=== PATIENT | female | born 1990 | race Two or more races ===

== ENCOUNTER 2020-05-20 12:26 | Emergency (ER) | payer BC ==
[2020-05-20] MEDS ORDERED: predniSONE 20 MG Tab PO ONE (13:13)
[2020-05-20] MEDS ORDERED: Famotidine 20 MG Tab PO ONE (13:14)
--- NOTE | 2020-05-20 13:21 | EDM.PDOC ---
ED HPI GENERAL MEDICAL PROBLEM - General Chief Complaint: Respiratory Problem Stated Complaint: SOB/CHEST TIGHTNESS Time Seen by Provider: 05/20/20 13:13 Source of Information: Reports: Patient History Limitations: Reports: No Limitations - History of Present Illness INITIAL COMMENTS - FREE TEXT/NARRATIVE: 29-year-old female presents to the ED with signs and symptoms of allergic reaction primarily involving her throat with itching in the throat and throat closure and also some difficulties breathing. Symptoms are now somewhat better than they were at onset of illness. Patient was started on Azo yesterday with Bactrim double strength for urinary tract infection. She did notice some mild itching in her throat yesterday and today she did not take any Bactrim as she was concerned she may be allergic to the sulfa component. She therefore only took the Azo tablet this morning within 20 minutes to half hour she started to develop itching of the throat and feeling of her throat was closing as well as difficulty breathing. Take Benadryl 50 mg by mouth at home. She felt that symptoms were getting better over a period of 2 to hours or so afterwards but then started to feel like it was starting to reoccur which brought her to the ED. At present she still states it feels much better than it did at onset this morning. He never developed any hives. She never developed any generalized erythema. No itching in the ears or excessive tearing from her eyes or swelling of the eyelids. Onset: Today, Sudden Onset Date: 05/20/20 Onset Time: 09:00 (Tempt him started 20 to 30 minutes after taking Azo tablet this morning) Duration: Hour(s): Location: Reports: Neck (Mostly symptoms of throat closure and itching and some difficulty breathing) Quality: Reports: Other Severity: Moderate (Throat itching and feeling of throat closure.) Improves with: Reports: Other (In terms have for the most part resolved after taking Benadryl 50 mg by mouth this morning.) Worsens with: Reports: None Context: Reports: Other (Suspect allergy to drug Azo. This would be to the dye in this compound). Denies: Activity, Exercise, Lifting, Sick Contact, Trauma Associated Symptoms: Reports: Shortness of Breath. Denies: Confusion, Chest Pain, Cough, cough w sputum, Diaphoresis, Fever/Chills, Headaches, Loss of Appetite, Malaise, Nausea/Vomiting, Rash, Seizure, Syncope, Weakness Treatments SOAP INSPECTOR: Reports: Other (see below) (Adderall 50 mg by mouth) - Related Data Allergies Allergy/AdvReac Type Severity Reaction Status Date / Time phenazopyridine [From Azo] Allergy Severe Airway Verified 05/20/20 13:13 Tightness Home Meds: Home Meds Sulfamethoxazole/Trimethoprim [Sulfamethoxazole-Tmp Ds Tablet] 1 tab PO BID 05/20/20 [History] predniSONE [Prednisone] 20 mg PO BID #6 tablet 05/20/20 [Rx] Past Medical History HEENT History: Reports: None Cardiovascular History: Reports: None Respiratory History: Reports: None Gastrointestinal History: Reports: None Genitourinary History: Reports: UTI, Recurrent HOME AIDE History: Reports: Spontaneous LMP (Approximate): Other (See Below) (And underwent a miscarriage about 3 weeks ago. She reports bleeding per vagina stopped about a week ago. She has no lower abdominal pain to be concern for endometritis.) Musculoskeletal History: Reports: None Neurological History: Reports: None Psychiatric History: Reports: Anxiety Endocrine/Metabolic History: Reports: None Hematologic History: Reports: None Immunologic History: Reports: None Oncologic (Cancer) History: Reports: None Dermatologic History: Reports: None - Infectious Disease History Infectious Disease History: Reports: None Social & Family History - Tobacco Use Smoking Status *Q: Never Smoker - Caffeine Use Caffeine Use: Reports: Coffee - Recreational Drug Use Recreational Drug Use: No ED ROS GENERAL - Review of Systems Review Of Systems: See Below Constitutional: Reports: Fatigue, Decreased Appetite. Denies: Fever, Chills, Malaise, Weakness, Night Sweats, Diaphoresis, Weight Loss (Is tired from the Benadryl.) HEENT: Reports: No Symptoms, Throat Swelling (Did feel short of breath and difficulty breathing at onset of allergic reaction but this is much improved. Initial problem was throat swelling and itching about 20 to 30 minutes after taking Azo tablet this morning.). Denies: Ear Pain, Eye Discharge Respiratory: Reports: Shortness of Breath Cardiovascular: Reports: No Symptoms. Denies: Chest Pain, Blood Pressure Problem, Claudication, Edema, Lightheadedness, Orthopnea Endocrine: Reports: No Symptoms GI/Abdominal: Reports: No Symptoms : Reports: Dysuria (Till having symptoms of urinary tract infection.), Frequency, Urgency, Other (Labs low-grade fever but denies back pain). Denies: Flank Pain Musculoskeletal: Reports: No Symptoms Skin: Reports: No Symptoms Neurological: Reports: No Symptoms Psychiatric: Reports: No Symptoms Hematologic/Lymphatic: Reports: No Symptoms Immunologic: Reports: No Symptoms ED EXAM, GENERAL - Physical Exam Exam: See Below Exam Limited By: No Limitations General Appearance: Alert, WD/WN, No Apparent Distress, Anxious, Other (Temperature is 36.5 heart rate 92 and sinus respiratory was 16 with O2 sats 100% on room air. BP 12/06/1976) Eye Exam: Bilateral Eye: Normal Inspection, Periorbital Changes, Other (No periorbital swelling.) Ears: Normal TMs Nose: Normal Inspection, Normal Mucosa Throat/Mouth: Normal Inspection, Normal Lips, Normal Teeth, Normal Oropharynx, Other (No swelling of the floor the mouth or the uvula. Tongue is normal) Head: Atraumatic, Normocephalic Neck: Normal Inspection, Supple, Non-Tender, Full Range of Motion. No: Lymphadenopathy (L), Lymphadenopathy (R) Respiratory/Chest: No Respiratory Distress, Lungs Clear, Normal Breath Sounds, No Accessory Muscle Use, Other (No stridor). No: Wheezing Cardiovascular: Normal Peripheral Pulses, Regular Rate, Rhythm, No Edema, No Gallop, No Murmur, No Rub Peripheral Pulses: 3+: Carotid (L), Carotid (R) Back Exam: Normal Inspection, Full Range of Motion. No: CVA Tenderness (L), CVA Tenderness (R) Neurological: Alert, Oriented, CN II-XII Intact, Normal Cognition Psychiatric: Normal Affect, Normal Mood, Anxious Skin Exam: Warm, Dry, Intact, Normal Color, No Rash Course - Vital Signs Last Recorded V/S: Last Vital Signs Temp 36.5 C 05/20/20 12:33 Pulse 92 05/20/20 12:33 Resp 16 05/20/20 12:33 BP 110/77 05/20/20 12:33 Pulse Ox 100 05/20/20 12:33 - Orders/Labs/Meds Meds: Medications Discontinued Medications Generic Name Dose Route Start Last Admin Trade Name Freq PRN Reason Stop Dose Admin Famotidine 20 mg 05/20/20 13:14 05/20/20 13:18 Pepcid PO 05/20/20 13:15 20 mg ONETIME ONE Administration Prednisone 20 mg 05/20/20 13:13 05/20/20 13:18 Prednisone PO 05/20/20 13:14 20 mg ONETIME ONE Administration - Radiology Interpretation Free Text/Narrative:: 29-year-old female presents to the ED with allergic reaction to suspect drug Azo. She took this this morning for urinary tract symptom relief and it caused subjective swelling of the throat and itching in her throat and some trouble breathing. She took the tablet approximately 0830 hrs. this morning and symptoms developed by 0900 hrs. She took Benadryl 50 mg by mouth shortly thereafter. She states however around noon symptoms seem started to seem to come back after seeming to mostly resolve. This is what precipitated ED visit. On examination she admits that she is feeling better at this point time. Her vital signs are normal. Her ear nose and throat exam was completely normal there was no stridor and her lungs are clear to all station percussion. Plan prednisone 20 mg now and repeat before bed tonight. Then twice daily tomorrow and the next day. Also given Pepcid 20 mg in the ED. She may take Benadryl every 6 hours if needed for recurrence of symptoms. It is likely that no further symptoms will occur once the prednisone begins to work. This will take 4 to 6 hours. Follow-up as needed. Departure - Departure Time of Disposition: 13:14 Disposition: Home, Self-Care 01 Condition: Fair Clinical Impression: Allergic reaction caused by a drug Qualifiers: Encounter type: initial encounter Qualified Code(s): T78.40XA - Allergy, unspecified, initial encounter - Discharge Information *PRESCRIPTION DRUG MONITORING PROGRAM REVIEWED*: Not Applicable *COPY OF PRESCRIPTION DRUG MONITORING REPORT IN PATIENT IVIS: Not Applicable Prescriptions: predniSONE [Prednisone] 20 mg PO BID #6 tablet Referrals: PCP,None [Primary Care Provider] - Forms: ED Department Discharge Additional Instructions: Evaluation in the emergency room today in regards to development of signs and symptoms of allergy within 20 to 30 minutes of taking Azo tablet today. You noticed this mildly yesterday as well. Reaction was worse today with closure of the throat and itching in the throat and some difficulties breathing. Since she took Benadryl and is been several hours since tablet was taken in symptoms have improved spontaneously. Would still suggest treatment with prednisone 20 mg now and repeat again before bed tonight then once in the morning once at supper for the next couple of days to make sure symptoms do not return. You were also given Pepcid 20 mg by mouth in the ED to help immediately with allergic response. I still use Benadryl 50 mg every 6 hours if symptoms recur although this would be unlikely once the prednisone is working. Of course no further intake of Azo ever in the future as you are allergic to the dye in the tablet. Avoid Pyridium medication which is often prescribed by physicians for urinary tract symptom relief. Sepsis Event Note (ED) - Evaluation Sepsis Screening Result: No Definite Risk - Focused Exam Vital Signs: Vital Signs Temp Pulse Resp BP Pulse Ox 05/20/20 12:33 36.5 C 92 16 110/77 100
== END 2020-05-20 13:36 | disposition home or self-care (01) ==
LOC: JD.ED 12:26
DX: L29.9 Pruritus, unspecified (principal); T39.8X5A Adverse effect of other nonopioid analgesics and antipyretics, not elsewhere classified, initial encounter; Z88.8 Allergy status to other drugs, medicaments and biological substances; Z79.899 Other long term (current) drug therapy
CPT/HCPCS: 99284; A9270; J7512